=== PATIENT | female | born 1970 ===

== ENCOUNTER → 2022-10-01 | Outpatient (CLI) | payer MEDICARE, OTHER ==
[~2022-10-01] VITALS: Ht 162.6 cm; Wt 108.0 kg
[2022-10-01 10:17] VITALS: BP 126/74
== END | disposition home or self-care (01) ==
LOC: SRCNTR 09:54
PROVIDERS: ATTEND Internal Medicine
DX: C90.00 Multiple myeloma not having achieved remission (principal); I48.91 Unspecified atrial fibrillation; E66.9 Obesity, unspecified; R09.02 Hypoxemia
CPT/HCPCS: G0463

== ENCOUNTER → 2022-11-14 | Outpatient (CLI) | payer MEDICARE, OTHER ==
[~2022-11-14] VITALS: Ht 162.6 cm; Wt 105.0 kg
[~2022-11-14] MED LIST: ALLO-45 PO; AMIT50TA4 PO; ASPI-1450 PO; ATOR20TA86 PO; BUME1TAB34 PO; GABA-1201 PO; METO25 PO; OXYC10TA59 PO; SENN-297 PO
[2022-11-14 12:36] VITALS: BP 124/76
== END | disposition home or self-care (01) ==
LOC: SRCNTR 12:20
PROVIDERS: ATTEND Internal Medicine
DX: I27.20 Pulmonary hypertension, unspecified (principal); G47.33 Obstructive sleep apnea (adult) (pediatric); I50.9 Heart failure, unspecified; R91.8 Other nonspecific abnormal finding of lung field; E66.9 Obesity, unspecified; C90.00 Multiple myeloma not having achieved remission; I48.91 Unspecified atrial fibrillation
CPT/HCPCS: G0463; Z7500

== ENCOUNTER → 2023-03-12 | Outpatient (CLI) | payer MEDICARE, OTHER ==
[~2023-03-12] VITALS: Ht 162.6 cm; Wt 107.5 kg
[~2023-03-12] MED LIST changes: +ATOR20TA PO; -ATOR20TA86 PO
[2023-03-12 08:54] VITALS: BP 98/59
== END | disposition home or self-care (01) ==
LOC: SRCNTR 08:36
PROVIDERS: ATTEND Internal Medicine
DX: I27.20 Pulmonary hypertension, unspecified (principal); G47.33 Obstructive sleep apnea (adult) (pediatric); I50.9 Heart failure, unspecified; E66.9 Obesity, unspecified; I48.91 Unspecified atrial fibrillation
CPT/HCPCS: G0463; Z7500

== ENCOUNTER → 2023-03-27 | Outpatient (CLI) | payer MEDICARE, OTHER ==
[2023-03-27 10:46] VITALS: BP 132/78
== END | disposition home or self-care (01) ==
LOC: SRCNTR 10:20
PROVIDERS: ATTEND Internal Medicine
DX: I27.20 Pulmonary hypertension, unspecified (principal); G47.33 Obstructive sleep apnea (adult) (pediatric); I50.9 Heart failure, unspecified; R91.8 Other nonspecific abnormal finding of lung field; E66.9 Obesity, unspecified; C90.00 Multiple myeloma not having achieved remission
CPT/HCPCS: G0463; Z7500

== ENCOUNTER → 2023-07-03 | Outpatient (CLI) | payer MEDICARE, OTHER ==
[~2023-07-03] VITALS: Ht 162.6 cm; Wt 106.0 kg
[2023-07-03 10:29] VITALS: BP 110/76; PULSE 78; RESP 16; TEMP 98.1; O2SAT 94
== END | disposition home or self-care (01) ==
LOC: SRCNTR 10:27
PROVIDERS: ATTEND Internal Medicine
DX: I27.20 Pulmonary hypertension, unspecified (principal); G47.33 Obstructive sleep apnea (adult) (pediatric); I50.9 Heart failure, unspecified; Z86.16 Personal history of COVID-19; Z79.899 Other long term (current) drug therapy
CPT/HCPCS: G0463; Z7500

== ENCOUNTER → 2023-12-16 | Outpatient (CLI) | payer MEDICARE, OTHER ==
[~2023-12-16] VITALS: Ht 162.6 cm; Wt 100.0 kg
[2023-12-16 09:16] VITALS: BP 106/60; PULSE 80; RESP 19; TEMP 98.1; O2SAT 96
== END | disposition home or self-care (01) ==
LOC: SRCNTR 09:02
PROVIDERS: ATTEND Internal Medicine
DX: R91.8 Other nonspecific abnormal finding of lung field (principal); I27.20 Pulmonary hypertension, unspecified; G47.33 Obstructive sleep apnea (adult) (pediatric); I50.9 Heart failure, unspecified
CPT/HCPCS: G0463